=== PATIENT | female | born 1965 | race Caucasian/White ===

== ENCOUNTER → 2018-02-01 | Outpatient (CLI) | payer BC | LOC: BMCIMAGING 11:20 | PROVIDERS: ATTEND Physician Assistant | DX: D86.9 Sarcoidosis, unspecified (principal); M25.561 Pain in right knee ==

== ENCOUNTER → 2018-09-21 | Outpatient (CLI) | payer BC | LOC: BMCIMAGING 16:39 | PROVIDERS: ATTEND Podiatrist Foot & Ankle Surgery | DX: M20.12 Hallux valgus (acquired), left foot (principal); M20.11 Hallux valgus (acquired), right foot ==